=== PATIENT | female | born 1980 | race Two or more races ===

== ENCOUNTER 2016-12-29 03:59 | Emergency (ER) | payer OTHER ==
[~2016-12-29] VITALS: Ht 162.6 cm; Wt 99.8 kg
[2016-12-29] MEDS ORDERED: SODIUM CHLORIDE 0.9% 1,000 ML IV ONE (07:39)
[2016-12-29 07:58] LABS: Basophils # (auto) 0 uL; Basophils % (auto) 0.5 % (0.0-2.0); CONDITION Y; Eosinophils # (auto) 0.1 uL; Eosinophils % (auto) 0.9 % (0.0-7.0); Hematocrit 26.8 % (36.0-46.0); Hemoglobin 9.1 g/dL (12.2-16.2); Lymphocytes # (auto) 0.9 uL; Lymphocytes % (auto) 10.4 % (10.0-50.0); Mean Corpuscular Hemoglobin 31.6 pg (28.0-32.0); Mean Corpuscular Hgb Conc. 34.1 g/dL (32.0-36.0); Mean Corpuscular Volume 92.7 fL (80.0-100.0); Mean Platelet Volume 8.5 fL (6.9-10.8); Monocytes # (auto) 0.2 uL; Monocytes % (auto) 2.5 % (0.0-12.0); Neutrophils # (auto) 7.9 uL; Neutrophils % (auto) 85.7 % (37.0-80.0); Platelet Count (auto) 238 10^3/uL (140-450); Red Cell Distribution Width 13.8 % (11.8-14.3); White Blood Cell 9.2 10^3/uL (4.4-10.8)
[2016-12-29 08:47] LABS: Calcium 7.8 mg/dL (8.5-10.1); Magnesium 2.7 mg/dL (1.6-2.6); Potassium 3.7 mmol/L (3.5-5.1)
[2016-12-29 08:53] LABS: BUN/Creatinine Ratio 6.1; Bilirubin, Total 0.2 mg/dL (0.2-1.0); Total Protein 5.9 g/dL (6.4-8.2)
[2016-12-29 09:43] VITALS: BP 139/75
[2016-12-29 09:57] LABS: Urine Bilirubin Negative (Negative); Urine Blood TRACE /uL (Negative); Urine Color Yellow (Yellow); Urine Glucose 3+ mg/dL (Normal); Urine Ketone TRACE (Negative); Urine Mucus FEW (None Seen); Urine Nitrite Negative (Negative); Urine RBC 11 /hpf (0 - 4); Urine Squamous Epithelial Cell MOD /hpf (<5); Urine Urobilinogen Normal (Negative); Urine pH 7.5 (5.0-8.0)
== END 2016-12-29 11:21 | disposition home or self-care (01) ==
LOC: ER 04:07
DX: E11.649 Type 2 diabetes mellitus with hypoglycemia without coma (principal); G93.41 Metabolic encephalopathy; E11.22 Type 2 diabetes mellitus with diabetic chronic kidney disease; N18.6 End stage renal disease; I12.0 Hypertensive chronic kidney disease with stage 5 chronic kidney disease or end stage renal disease; Z99.2 Dependence on renal dialysis
CPT/HCPCS: 36415; 80053; 81001; 81025; 82962; 83036; 83735; 84443; 85025; 96360; 96361; 99285; J7030

== ENCOUNTER 2019-05-07 15:52 | Inpatient (IN) | payer OTHER ==
[~2019-05-07] VITALS: Ht 167.6 cm; Wt 103.2 kg
[2019-05-07 16:25] LABS: Basophils # (auto) 0.1 uL; Basophils % (auto) 0.9 % (0.0-2.0); Eosinophils # (auto) 0 uL; Hematocrit 33.7 % (36.0-46.0); Hemoglobin 11.4 g/dL (12.2-16.2); Lymphocytes # (auto) 1.3 uL; Lymphocytes % (auto) 7.9 % (10.0-50.0); Mean Corpuscular Hgb Conc. 33.7 g/dL (32.0-36.0); Mean Corpuscular Volume 95.1 fL (80.0-100.0); Monocytes # (auto) 1.1 uL; Monocytes % (auto) 6.5 % (0.0-12.0); Neutrophils % (auto) 84.7 % (37.0-80.0); Platelet Count (auto) 216 10^3/uL (140-450); Red Blood Cells 3.55 10^6/uL (4.0-5.20); Red Cell Distribution Width 13.3 % (11.8-14.3); White Blood Cell 16.5 10^3/uL (4.4-10.8)
[2019-05-07 16:42] LABS: INR 1.16 (0.9-1.15); Partial Thromboplastin Time 23.9 sec (23.64-32.05)
[2019-05-07 16:43] LABS: Albumin 2.7 g/dL (3.4-5.0); Calcium 8.8 mg/dL (8.5-10.1)
[2019-05-07 16:48] LABS: BUN/Creatinine Ratio 3.8; Bilirubin, Total 0.4 mg/dL (0.2-1.0); Total Protein 7.8 g/dL (6.4-8.2)
[2019-05-07] MEDS ORDERED: ONDANSETRON HCL 4 MG/2 ML VIAL IV ONE ×2 (18:00→20:00)
[2019-05-07] MEDS ORDERED: ALUM & MAG HYDROX-SIMETH LIQ(MAALOX) 30 ML ONE (21:39)
[2019-05-07] MEDS ORDERED: ALUM & MAG HYDROX-SIMETH LIQ(MAALOX) 30 ML PO ONE (21:45)
[2019-05-07] MEDS ORDERED: LORazepam 0.5 MG TAB PO PRN (22:30)
[2019-05-07] MEDS ORDERED: DEXTROSE (50%) 50ML SYRG IV PRN (22:30)
[2019-05-07] MEDS ORDERED: MORPHINE SULFATE 4 MG/ML SYR/VIAL IV PRN (22:30)
[2019-05-07] MEDS ORDERED: NITROGLYCERIN 0.4 MG SL TAB SL PRN (22:30)
[2019-05-08] MEDS: InsuLIN REG 1unit/0.01ml Soln (100units/ml) SC SCH ×6 (00:33→20:02)
[2019-05-08] MEDS: SODIUM CHLORIDE 0.9% 1,000 ML IV SCH ×2 (00:33→11:47)
[2019-05-08] MEDS: ACCU-CHEK COMFORT CURVE STRIP VI SCH ×6 (00:34→20:02)
[2019-05-08] MEDS: PROMETHAZINE HCL 25 MG/ML 1ML IV PRN ×3 (00:35→13:12)
[2019-05-08] MEDS: ACETAMINOPHEN 325 MG TAB PO PRN ×3 (00:52→13:16)
[2019-05-08] MEDS ORDERED: LISINOPRIL 5 MG TAB PO ONE (01:00)
[2019-05-08] MEDS ORDERED: METOPROLOL TARTRATE 25 MG TAB PO ONE (01:00)
[2019-05-08 05:00] VITALS: BP 135/61
[2019-05-08 06:02] LABS: Basophils # (auto) 0.1 uL; Basophils % (auto) 0.5 % (0.0-2.0); Eosinophils # (auto) 0 uL; Eosinophils % (auto) 0.1 % (0.0-7.0); Hematocrit 31.8 % (36.0-46.0); Hemoglobin 10.9 g/dL (12.2-16.2); Lymphocytes # (auto) 1.6 uL; Lymphocytes % (auto) 11.4 % (10.0-50.0); Mean Corpuscular Hemoglobin 32.8 pg (28.0-32.0); Mean Corpuscular Hgb Conc. 34.3 g/dL (32.0-36.0); Mean Corpuscular Volume 95.4 fL (80.0-100.0); Monocytes # (auto) 1.4 uL; Monocytes % (auto) 10.2 % (0.0-12.0); Neutrophils # (auto) 10.6 uL; Neutrophils % (auto) 77.8 % (37.0-80.0); Platelet Count (auto) 189 10^3/uL (140-450); Red Blood Cells 3.33 10^6/uL (4.0-5.20); Red Cell Distribution Width 13.1 % (11.8-14.3); White Blood Cell 13.7 10^3/uL (4.4-10.8)
[2019-05-08 06:20] LABS: Potassium 4.1 mmol/L (3.5-5.1)
[2019-05-08 06:23] LABS: BUN/Creatinine Ratio 3.9
[2019-05-08] MEDS: CLOPIDOGREL BISULFATE 75 MG TAB PO SCH (09:12)
[2019-05-08] MEDS: ASPirin 81 mg TAB PO SCH (09:12)
[2019-05-08] MEDS: LISINOPRIL 5 MG TAB PO SCH (09:12)
[2019-05-08] MEDS: METOPROLOL TARTRATE 25 MG TAB PO SCH ×2 (09:13→22:28)
[2019-05-08 09:27] VITALS: BP 122/65
[2019-05-08] MEDS ORDERED: PERITONEAL DIALYSIS 2.5% SOLN 2,000 ML IP SCH ×2 (12:00→14:00)
[2019-05-08 13:00] VITALS: BP 141/92
[2019-05-08] MEDS: metroNIDAZOLE 500MG/100ML 100 ML IV SCH ×2 (13:08→22:29)
[2019-05-08] MEDS: PIPERACILLIN-TAZOB 2.25GM 50 ML IV SCH ×2 (14:23→22:28)
[2019-05-08 17:00] VITALS: BP 158/91
[2019-05-08] MEDS: PERITONEAL DIALYSIS 2.5% SOLN 2,000 ML IP SCH (17:31)
[2019-05-08] MEDS ORDERED: MORPHINE SULF INJ 2 MG/ML SYRINGE 1ML IV PRN (18:00)
[2019-05-08] MEDS: MORPHINE SULF INJ 2 MG/ML SYRINGE 1ML IV PRN (19:55)
[2019-05-08 20:00] VITALS: BP 141/92
[2019-05-08 22:00] VITALS: BP 177/91
[2019-05-08] MEDS: ATORVASTATIN 20 MG TAB PO SCH (22:27)
[2019-05-08] MEDS: PERITONEAL DIALYSIS 4.25% SOLN 2,000 ML IP SCH (22:50)
[2019-05-09] MEDS: SODIUM CHLORIDE 0.9% 1,000 ML IV SCH ×3 (01:07→20:35)
[2019-05-09] MEDS: ACCU-CHEK COMFORT CURVE STRIP VI SCH ×6 (04:00→20:21)
[2019-05-09] MEDS: InsuLIN REG 1unit/0.01ml Soln (100units/ml) SC SCH ×6 (04:00→20:30)
[2019-05-09 05:00] VITALS: BP 167/100
[2019-05-09] MEDS: metroNIDAZOLE 500MG/100ML 100 ML IV SCH ×3 (05:48→21:58)
[2019-05-09] MEDS: PIPERACILLIN-TAZOB 2.25GM 50 ML IV SCH ×3 (05:49→22:59)
[2019-05-09] MEDS: MORPHINE SULF INJ 2 MG/ML SYRINGE 1ML IV PRN ×4 (05:55→23:00)
[2019-05-09] MEDS: PERITONEAL DIALYSIS 2.5% SOLN 2,000 ML IP SCH ×3 (06:14→16:34)
[2019-05-09 09:00] VITALS: BP 169/90
[2019-05-09] MEDS: amLODIPine BESYLATE 5 MG TAB PO SCH (09:38)
[2019-05-09] MEDS: CLOPIDOGREL BISULFATE 75 MG TAB PO SCH (09:38)
[2019-05-09] MEDS: LISINOPRIL 5 MG TAB PO SCH (09:39)
[2019-05-09] MEDS: ASPirin 81 mg TAB PO SCH (09:39)
[2019-05-09] MEDS: METOPROLOL TARTRATE 25 MG TAB PO SCH ×2 (09:39→21:59)
[2019-05-09 10:54] LABS: Albumin 2.4 g/dL (3.4-5.0); Calcium 8.2 mg/dL (8.5-10.1); Potassium 4.1 mmol/L (3.5-5.1)
[2019-05-09 10:57] LABS: BUN/Creatinine Ratio 3.9; Bilirubin, Total 0.5 mg/dL (0.2-1.0)
[2019-05-09] MEDS: SUCRALFATE 1 GM/10 ML ORAL SUSP PO SCH ×3 (12:34→21:58)
[2019-05-09] MEDS: ONDANSETRON HCL 4 MG/2 ML VIAL IV PRN ×2 (12:34→20:35)
[2019-05-09] MEDS: CALCIUM ACETATE 667 MG CAP PO SCH ×2 (12:35→17:53)
[2019-05-09 13:04] VITALS: BP 178/95
[2019-05-09] MEDS: PROMETHAZINE HCL 25 MG/ML 1ML IV PRN ×2 (15:34→23:07)
[2019-05-09 16:48] VITALS: BP 160/101
[2019-05-09 21:48] VITALS: BP 190/103
[2019-05-09] MEDS: ATORVASTATIN 20 MG TAB PO SCH (21:58)
[2019-05-09] MEDS: PERITONEAL DIALYSIS 4.25% SOLN 2,000 ML IP SCH (22:25)
[2019-05-10] VITALS (7 sets, daily range): BP systolic 121–172; BP diastolic 73–91
[2019-05-10] MEDS: ACCU-CHEK COMFORT CURVE STRIP VI SCH ×6 (00:04→19:52)
[2019-05-10] MEDS: InsuLIN REG 1unit/0.01ml Soln (100units/ml) SC SCH ×6 (00:08→19:57)
[2019-05-10] MEDS: SODIUM CHLORIDE 0.9% 1,000 ML IV SCH (03:47)
[2019-05-10] MEDS: metroNIDAZOLE 500MG/100ML 100 ML IV SCH ×2 (05:08→13:59)
[2019-05-10] MEDS: PIPERACILLIN-TAZOB 2.25GM 50 ML IV SCH (06:02)
[2019-05-10] MEDS: SUCRALFATE 1 GM/10 ML ORAL SUSP PO SCH ×3 (06:18→18:01)
[2019-05-10] MEDS: PERITONEAL DIALYSIS 2.5% SOLN 2,000 ML IP SCH ×3 (06:51→16:14)
[2019-05-10 07:23] LABS: Basophils # (auto) 0.1 uL; Eosinophils # (auto) 0.1 uL; Eosinophils % (auto) 1.1 % (0.0-7.0); Hematocrit 30.9 % (36.0-46.0); Hemoglobin 10.7 g/dL (12.2-16.2); Lymphocytes # (auto) 1.1 uL; Lymphocytes % (auto) 13.4 % (10.0-50.0); Mean Corpuscular Hemoglobin 32.8 pg (28.0-32.0); Mean Corpuscular Hgb Conc. 34.6 g/dL (32.0-36.0); Mean Corpuscular Volume 94.8 fL (80.0-100.0); Monocytes # (auto) 0.8 uL; Monocytes % (auto) 10.1 % (0.0-12.0); Neutrophils # (auto) 6.1 uL; Neutrophils % (auto) 74.4 % (37.0-80.0); Platelet Count (auto) 168 10^3/uL (140-450); Red Blood Cells 3.25 10^6/uL (4.0-5.20); Red Cell Distribution Width 12.8 % (11.8-14.3); White Blood Cell 8.2 10^3/uL (4.4-10.8)
[2019-05-10 07:46] LABS: Potassium 3.8 mmol/L (3.5-5.1)
[2019-05-10 07:48] LABS: BUN/Creatinine Ratio 3.9
[2019-05-10 07:50] LABS: Bilirubin, Total 0.5 mg/dL (0.2-1.0); Total Protein 6.1 g/dL (6.4-8.2)
[2019-05-10] MEDS: CALCIUM ACETATE 667 MG CAP PO SCH ×3 (08:00→18:01)
[2019-05-10] MEDS ORDERED: SODIUM CHLORIDE 0.9% 1,000 ML IV SCH (09:15)
[2019-05-10] MEDS ORDERED: FUROSEMIDE 100 MG/10ML VIAL IV ONE (09:30)
[2019-05-10] MEDS ORDERED: acetaZOLAMIDE 250 MG TAB PO SCH (10:00)
[2019-05-10] MEDS: LISINOPRIL 10 MG TAB PO SCH ×2 (10:40→10:51)
[2019-05-10] MEDS: amLODIPine BESYLATE 5 MG TAB PO SCH (10:40)
[2019-05-10] MEDS: METOPROLOL TARTRATE 25 MG TAB PO SCH (10:41)
[2019-05-10] MEDS ORDERED: HYDROcodone-ACET 5/325MG TAB PO PRN (12:30)
[2019-05-10] MEDS: ONDANSETRON HCL 4 MG/2 ML VIAL IV PRN ×2 (12:58→18:06)
[2019-05-10] MEDS ORDERED: PIPERACILLIN-TAZOB 2.25GM 50 ML IV SCH (15:00)
[2019-05-10] MEDS ORDERED: TUBERCULIN PPD 5 UNIT/0.1 ML ID ONE (21:00)
[2019-05-12] MEDS ORDERED: ASPirin 81 mg TAB PO SCH (10:00)
[2019-05-12] MEDS ORDERED: CLOPIDOGREL BISULFATE 75 MG TAB PO SCH (10:00)
== END 2019-05-10 22:10 | disposition short-term general hospital (02) | DRG 871 ==
LOC: EDBD 15:52 → EDUNIT# 15:52 → ER 15:59 → TELE 16:00 → TELE-CENTR 23:31
PROVIDERS: ADMIT Hospitalist; ATTEND Family Medicine
DX: A41.9 Sepsis, unspecified organism (principal); I21.4 Non-ST elevation (NSTEMI) myocardial infarction; N18.6 End stage renal disease; E87.1 Hypo-osmolality and hyponatremia; I13.2 Hypertensive heart and chronic kidney disease with heart failure and with stage 5 chronic kidney disease, or end stage renal disease; J98.11 Atelectasis; E87.3 Alkalosis; E10.22 Type 1 diabetes mellitus with diabetic chronic kidney disease; D63.1 Anemia in chronic kidney disease; E66.9 Obesity, unspecified; I16.0 Hypertensive urgency; I50.9 Heart failure, unspecified; K52.9 Noninfective gastroenteritis and colitis, unspecified; E83.39 Other disorders of phosphorus metabolism; K20.9 Esophagitis, unspecified; E10.21 Type 1 diabetes mellitus with diabetic nephropathy; E10.40 Type 1 diabetes mellitus with diabetic neuropathy, unspecified; E78.00 Pure hypercholesterolemia, unspecified; Z79.899 Other long term (current) drug therapy; Z82.49 Family history of ischemic heart disease and other diseases of the circulatory system; Z83.3 Family history of diabetes mellitus; Z99.2 Dependence on renal dialysis
CPT/HCPCS: 36415; 71045; 71250; 74176; 80048; 80053; 80061; 82306; 82962; 83036; 83605; 83690; 83880; 83970; 84100; 84484; 84702; 85025; 85610; 85730; 87040; 89051; 93306; G0378; J1815; J2405; J2543; J3490

== ENCOUNTER 2021-11-27 13:09 | Inpatient (IN) | payer OTHER ==
[~2021-11-27] VITALS: Ht 160 cm; Wt 99.6 kg
[2021-11-27] MEDS: PERITONEAL DIALYSIS 2.5% SOLN 2,000 ML IP SCH (04:00)
[2021-11-27 14:05] LABS: Basophils # (auto) 0.1 10 ^3/uL (0-0.2); Basophils % (auto) 0.7 % (0.0-2.0); Eosinophils # (auto) 0 10 ^3/uL (0-0.8); Eosinophils % (auto) 0.2 % (0.0-7.0); Hematocrit 31.5 % (36.0-46.0); Hemoglobin 10.8 g/dL (12.2-16.2); Lymphocytes # (auto) 0.6 10 ^3/uL (0.4-5.4); Lymphocytes % (auto) 6.9 % (10.0-50.0); Mean Corpuscular Hemoglobin 30.8 pg (28.0-32.0); Mean Corpuscular Hgb Conc. 34.2 g/dL (32.0-36.0); Mean Corpuscular Volume 90.1 fL (80.0-100.0); Monocytes # (auto) 0.6 10 ^3/uL (0-1.3); Monocytes % (auto) 6.9 % (0.0-12.0); Neutrophils # (auto) 6.9 10 ^3/uL (1.6-8.6); Neutrophils % (auto) 85.3 % (37.0-80.0); Red Cell Distribution Width 13.8 % (11.8-14.3); White Blood Cell 8.1 10^3/uL (4.4-10.8)
[2021-11-27 14:35] LABS: INR 1.04 (0.9-1.15); Partial Thromboplastin Time 24.5 sec (24.6-33.4)
[2021-11-27 14:51] LABS: Albumin 2.9 g/dL (3.4-5.0); Calcium 9.2 mg/dL (8.5-10.1)
[2021-11-27 14:53] LABS: BUN/Creatinine Ratio 2.6
[2021-11-27 14:56] LABS: Bilirubin, Total 0.5 mg/dL (0.2-1.0); Total Protein 7.8 g/dL (6.4-8.2)
[2021-11-27 15:19] LABS: Potassium 2.6 mmol/L (3.5-5.1)
[2021-11-27] MEDS ORDERED: POTASSIUM CHL 20MEQ/100ML 100 ML IV ONE (15:30)
[2021-11-27] MEDS ORDERED: ENOXAPARIN SOD 80 MG/0.8ML SYRINGE SC ONE (15:45)
[2021-11-27] MEDS ORDERED: POTASSIUM CHLORIDE 20 MEQ, LIDOCAINE 1% (LOCAL ANESTH.) 2 ML in SODIUM CHL 0.9% 100 ML IV ONE (17:15)
[2021-11-27] MEDS ORDERED: hydrALAZINE HCL 20 MG/ML VL IV ONE (17:15)
[2021-11-27] MEDS ORDERED: NITROGLYCERIN 0.4 MG SL TAB SL PRN ×2 (17:15→17:30)
[2021-11-27] MEDS ORDERED: MORPHINE SULFATE INJ 2 MG/ml SYRG IV PRN ×2 (17:15→17:30)
[2021-11-27] MEDS ORDERED: ASPirin 81 mg TAB PO ONE (17:30)
[2021-11-27] MEDS ORDERED: hydrALAZINE HCL 20 MG/ML VL IV PRN (17:45)
[2021-11-27] MEDS ORDERED: DEXTROSE (50%) 50ML SYRG IV PRN ×2 (17:45→21:15)
[2021-11-27] MEDS: hydrALAZINE HCL 20 MG/ML VL IV PRN (17:47)
[2021-11-27 19:15] LABS: Magnesium 1.8 mg/dL (1.6-2.6)
[2021-11-27] MEDS: POTASSIUM CHL 20MEQ/100ML 100 ML IV SCH ×2 (19:35→21:22)
[2021-11-27] MEDS ORDERED: PROMETHAZINE HCL 25 MG/ML 1ML IV ONE (19:45)
[2021-11-27 19:57] LABS: Cholesterol 133 mg/dL (< 200); Triglycerides 72 mg/dL (< 150)
[2021-11-27 20:30] LABS: HDL Cholesterol 39 mg/dL (40-59); LDL Cholesterol 93 mg/dL (< 100)
[2021-11-27] MEDS ORDERED: DEXTROSE (50%) 50ML SYRG IV ONE (21:00)
[2021-11-27] MEDS ORDERED: ACCU-CHEK COMFORT CURVE STRIP VI SCH (22:00)
[2021-11-27] MEDS ORDERED: InsuLIN REG 1unit/0.01ml Soln (100units/ml) SC SCH (22:00)
[2021-11-27] MEDS: InsuLIN REG 1unit/0.01ml Soln (100units/ml) SC SCH (22:04)
[2021-11-27] MEDS: ACCU-CHEK COMFORT CURVE STRIP VI SCH (22:05)
[2021-11-27 22:30] VITALS: BP 188/85
[2021-11-27] MEDS: ATORVASTATIN 20 MG TAB PO SCH (22:47)
[2021-11-27] MEDS: METOPROLOL TARTRATE 50 MG TAB PO SCH (22:48)
[2021-11-28] VITALS (7 sets, daily range): BP systolic 120–187; BP diastolic 60–95
[2021-11-28] MEDS: PERITONEAL DIALYSIS 2.5% SOLN 2,000 ML IP SCH ×7 (02:00→22:00)
[2021-11-28] MEDS: ACCU-CHEK COMFORT CURVE STRIP VI SCH ×4 (02:20→23:57)
[2021-11-28] MEDS: InsuLIN REG 1unit/0.01ml Soln (100units/ml) SC SCH ×3 (02:21→09:48)
[2021-11-28 05:32] LABS: Basophils # (auto) 0 10 ^3/uL (0-0.2); Basophils % (auto) 0.5 % (0.0-2.0); Eosinophils # (auto) 0 10 ^3/uL (0-0.8); Eosinophils % (auto) 0.1 % (0.0-7.0); Hematocrit 27.4 % (36.0-46.0); Hemoglobin 9.5 g/dL (12.2-16.2); Lymphocytes # (auto) 1.2 10 ^3/uL (0.4-5.4); Lymphocytes % (auto) 17.1 % (10.0-50.0); Mean Corpuscular Hgb Conc. 34.5 g/dL (32.0-36.0); Mean Corpuscular Volume 92.8 fL (80.0-100.0); Monocytes # (auto) 0.8 10 ^3/uL (0-1.3); Monocytes % (auto) 12.2 % (0.0-12.0); Neutrophils # (auto) 4.7 10 ^3/uL (1.6-8.6); Neutrophils % (auto) 70.1 % (37.0-80.0); Red Blood Cells 2.96 10^6/uL (4.0-5.20); Red Cell Distribution Width 14.1 % (11.8-14.3); White Blood Cell 6.7 10^3/uL (4.4-10.8)
[2021-11-28 05:53] LABS: Albumin 2.4 g/dL (3.4-5.0); BUN/Creatinine Ratio 3.1; Calcium 8.1 mg/dL (8.5-10.1); Potassium 3.2 mmol/L (3.5-5.1)
[2021-11-28 05:56] LABS: Bilirubin, Total 0.3 mg/dL (0.2-1.0); Total Protein 6.7 g/dL (6.4-8.2)
[2021-11-28] MEDS: LOSARTAN POTASSIUM 25 MG TAB PO SCH (09:29)
[2021-11-28] MEDS: ASPirin 81 mg TAB PO SCH (09:29)
[2021-11-28] MEDS: METOPROLOL TARTRATE 50 MG TAB PO SCH ×2 (09:30→20:29)
[2021-11-28] MEDS ORDERED: POTASSIUM CHL 20 Meq TABLET PO SCH (10:00)
[2021-11-28] MEDS ORDERED: ENOXAPARIN SOD 30 MG/0.3 ML SYRINGE SC SCH (10:00)
[2021-11-28] MEDS: ONDANSETRON HCL 4 MG/2 ML VIAL IV PRN ×2 (10:35→14:53)
[2021-11-28] MEDS ORDERED: ERGOCALCIFEROL 50,000 UNIT(1.25MG) CAP PO SCH (11:15)
[2021-11-28] MEDS ORDERED: AZITHROMYCIN 250 MG TAB PO ONE (11:45)
[2021-11-28] MEDS ORDERED: DEXTROSE (50%) 50ML SYRG IV PRN ×3 (11:45→20:15)
[2021-11-28] MEDS: POTASSIUM CHL 20 Meq TABLET PO SCH ×2 (13:50→22:09)
[2021-11-28] MEDS: POTASSIUM CHL 20MEQ/100ML 100 ML IV SCH ×2 (13:50→17:18)
[2021-11-28] MEDS ORDERED: ACCU-CHEK COMFORT CURVE STRIP VI SCH (17:00)
[2021-11-28] MEDS ORDERED: InsuLIN REG 1unit/0.01ml Soln (100units/ml) SC SCH (17:00)
[2021-11-28] MEDS ORDERED: POTASSIUM CHL 20MEQ/100ML 100 ML IV ONE (17:18)
[2021-11-28] MEDS: hydrALAZINE HCL 20 MG/ML VL IV PRN (17:53)
[2021-11-28] MEDS ORDERED: INSULIN LANTUS (GLARGINE) 1 /0.01ml (100units/ml) SC ONE (20:00)
[2021-11-28] MEDS: METOCLOPRAMIDE HCL 5MG/ml INJ 2ml VIAL IV PRN (20:08)
[2021-11-28 20:11] LABS: Basophils # (auto) 0 10 ^3/uL (0-0.2); Basophils % (auto) 0.3 % (0.0-2.0); Eosinophils # (auto) 0 10 ^3/uL (0-0.8); Eosinophils % (auto) 0.1 % (0.0-7.0); Hematocrit 29.9 % (36.0-46.0); Hemoglobin 9.7 g/dL (12.2-16.2); Lymphocytes # (auto) 0.8 10 ^3/uL (0.4-5.4); Lymphocytes % (auto) 7.8 % (10.0-50.0); Mean Corpuscular Hemoglobin 30.5 pg (28.0-32.0); Mean Corpuscular Hgb Conc. 32.4 g/dL (32.0-36.0); Mean Corpuscular Volume 94.2 fL (80.0-100.0); Monocytes # (auto) 0.5 10 ^3/uL (0-1.3); Monocytes % (auto) 4.6 % (0.0-12.0); Neutrophils # (auto) 8.6 10 ^3/uL (1.6-8.6); Neutrophils % (auto) 87.2 % (37.0-80.0); Red Blood Cells 3.18 10^6/uL (4.0-5.20); Red Cell Distribution Width 14.1 % (11.8-14.3); White Blood Cell 9.8 10^3/uL (4.4-10.8)
[2021-11-28] MEDS ORDERED: EPOETIN ALFA-EPBX 10,000 UNIT/1ML VIAL SC ONE (21:00)
[2021-11-28] MEDS: ATORVASTATIN 20 MG TAB PO SCH (22:09)
[2021-11-28] MEDS: INSULIN LANTUS (GLARGINE) 1 /0.01ml (100units/ml) SC SCH (22:10)
[2021-11-29] VITALS: BP 157/67
[2021-11-29] MEDS ORDERED: ACCU-CHEK COMFORT CURVE STRIP VI SCH
[2021-11-29] MEDS: PERITONEAL DIALYSIS 2.5% SOLN 2,000 ML IP SCH ×5 (00:24→18:00)
[2021-11-29] MEDS: METOCLOPRAMIDE HCL 5MG/ml INJ 2ml VIAL IV PRN (02:31)
[2021-11-29 05:00] VITALS: BP 145/77
[2021-11-29] MEDS: ACCU-CHEK COMFORT CURVE STRIP VI SCH ×4 (06:01→23:49)
[2021-11-29] MEDS: InsuLIN REG 1unit/0.01ml Soln (100units/ml) SC SCH ×5 (06:03→23:50)
[2021-11-29 06:21] LABS: Basophils # (auto) 0.1 10 ^3/uL (0-0.2); Basophils % (auto) 0.8 % (0.0-2.0); Eosinophils # (auto) 0 10 ^3/uL (0-0.8); Eosinophils % (auto) 0.4 % (0.0-7.0); Hematocrit 26.7 % (36.0-46.0); Hemoglobin 9.3 g/dL (12.2-16.2); Lymphocytes # (auto) 1.2 10 ^3/uL (0.4-5.4); Mean Corpuscular Hgb Conc. 34.6 g/dL (32.0-36.0); Mean Corpuscular Volume 92.4 fL (80.0-100.0); Monocytes # (auto) 0.7 10 ^3/uL (0-1.3); Neutrophils # (auto) 5.3 10 ^3/uL (1.6-8.6); Neutrophils % (auto) 72.8 % (37.0-80.0); Red Blood Cells 2.89 10^6/uL (4.0-5.20); White Blood Cell 7.3 10^3/uL (4.4-10.8)
[2021-11-29 06:38] LABS: Calcium 8.6 mg/dL (8.5-10.1); Potassium 3.3 mmol/L (3.5-5.1)
[2021-11-29 06:48] LABS: % Iron Saturation 19.1 % (15-50)
[2021-11-29 08:40] VITALS: BP 159/84
[2021-11-29] MEDS ORDERED: AZITHROMYCIN 250 MG TAB PO SCH (10:00)
[2021-11-29 12:35] VITALS: BP 166/89
[2021-11-29] MEDS ORDERED: LOPERAMIDE HCL 2 MG CAP/TAB PO ONE (12:45)
[2021-11-29] MEDS: ASPirin 81 mg TAB PO SCH (13:25)
[2021-11-29] MEDS: LOSARTAN POTASSIUM 25 MG TAB PO SCH (13:26)
[2021-11-29] MEDS: POTASSIUM CHL 20 Meq TABLET PO SCH ×2 (13:26→21:55)
[2021-11-29] MEDS: METOPROLOL TARTRATE 50 MG TAB PO SCH ×2 (13:29→21:56)
[2021-11-29] MEDS ORDERED: metroNIDAZOLE 500MG/100ML 100 ML IV ONE (13:45)
[2021-11-29] MEDS: POTASSIUM CHL 20MEQ/100ML 100 ML IV SCH ×3 (16:01→23:31)
[2021-11-29 16:30] VITALS: BP 165/91
[2021-11-29] MEDS ORDERED: PERITONEAL DIALYSIS 2.5% XX SCH (18:30)
[2021-11-29] MEDS: PERITONEAL DIALYSIS 2.5% IP SCH ×2 (18:30→22:30)
[2021-11-29] MEDS: ONDANSETRON HCL 4 MG/2 ML VIAL IV PRN (21:09)
[2021-11-29] MEDS: ATORVASTATIN 20 MG TAB PO SCH (21:55)
[2021-11-29 22:00] VITALS: BP 160/81
[2021-11-29] MEDS: metroNIDAZOLE 500MG/100ML 100 ML IV SCH (23:00)
[2021-11-29] MEDS: INSULIN LANTUS (GLARGINE) 1 /0.01ml (100units/ml) SC SCH (23:22)
[2021-11-29] MEDS ORDERED: POTASSIUM CHL 20MEQ/100ML 100 ML IV SCH (23:30)
[2021-11-30] MEDS: hydrALAZINE HCL 20 MG/ML VL IV PRN (00:23)
[2021-11-30] MEDS: ONDANSETRON HCL 4 MG/2 ML VIAL IV PRN (01:58)
[2021-11-30] MEDS: PERITONEAL DIALYSIS 2.5% IP SCH ×2 (02:30→06:30)
[2021-11-30 05:00] VITALS: BP 148/73
[2021-11-30] MEDS: ACCU-CHEK COMFORT CURVE STRIP VI SCH ×2 (05:53→11:50)
[2021-11-30] MEDS: InsuLIN REG 1unit/0.01ml Soln (100units/ml) SC SCH ×2 (05:54→11:50)
[2021-11-30] MEDS: metroNIDAZOLE 500MG/100ML 100 ML IV SCH (06:00)
[2021-11-30 07:57] LABS: Basophils # (auto) 0 10 ^3/uL (0-0.2); Basophils % (auto) 0.5 % (0.0-2.0); Eosinophils # (auto) 0.1 10 ^3/uL (0-0.8); Eosinophils % (auto) 0.9 % (0.0-7.0); Hematocrit 28.8 % (36.0-46.0); Hemoglobin 9.7 g/dL (12.2-16.2); Lymphocytes # (auto) 1.1 10 ^3/uL (0.4-5.4); Mean Corpuscular Hemoglobin 31.1 pg (28.0-32.0); Mean Corpuscular Hgb Conc. 33.8 g/dL (32.0-36.0); Mean Corpuscular Volume 92.2 fL (80.0-100.0); Monocytes # (auto) 0.6 10 ^3/uL (0-1.3); Monocytes % (auto) 8.4 % (0.0-12.0); Neutrophils # (auto) 5.3 10 ^3/uL (1.6-8.6); Neutrophils % (auto) 75.2 % (37.0-80.0); Red Blood Cells 3.13 10^6/uL (4.0-5.20); White Blood Cell 7.1 10^3/uL (4.4-10.8)
[2021-11-30 08:04] LABS: Potassium 3.8 mmol/L (3.5-5.1)
[2021-11-30 08:10] LABS: BUN/Creatinine Ratio 2.6; Calcium 8.1 mg/dL (8.5-10.1)
[2021-11-30 09:00] VITALS: BP 171/86
[2021-11-30] MEDS: METOPROLOL TARTRATE 50 MG TAB PO SCH (11:48)
[2021-11-30] MEDS: POTASSIUM CHL 20 Meq TABLET PO SCH (11:49)
[2021-11-30] MEDS: ASPirin 81 mg TAB PO SCH (11:49)
[2021-11-30] MEDS: LOSARTAN POTASSIUM 25 MG TAB PO SCH (11:50)
[2021-11-30] MEDS ORDERED: PANTOPRAZOLE 40 MG TAB PO ONE (12:45)
[2021-11-30 12:50] LABS: Hepatitis C Antibody Negative (Negative)
[2021-11-30 13:25] VITALS: BP 158/86
[2021-11-30 13:52] VITALS: BP 166/76
== END 2021-11-30 14:00 | disposition home or self-care (01) | DRG 177 ==
LOC: ER 13:09 → EDBD 13:09 → TELE 17:30 → TELE-WESTW 22:24
PROVIDERS: ADMIT Registered Nurse; ATTEND Internal Medicine
DX: U07.1 COVID-19 (principal); I21.A1 Myocardial infarction type 2; N18.6 End stage renal disease; I12.0 Hypertensive chronic kidney disease with stage 5 chronic kidney disease or end stage renal disease; E87.6 Hypokalemia; E88.09 Other disorders of plasma-protein metabolism, not elsewhere classified; E11.65 Type 2 diabetes mellitus with hyperglycemia; I16.0 Hypertensive urgency; E11.22 Type 2 diabetes mellitus with diabetic chronic kidney disease; E55.9 Vitamin D deficiency, unspecified; E78.5 Hyperlipidemia, unspecified; D63.1 Anemia in chronic kidney disease; E66.9 Obesity, unspecified; Z79.4 Long term (current) use of insulin; Z68.38 Body mass index [BMI] 38.0-38.9, adult; Z99.2 Dependence on renal dialysis; Z82.49 Family history of ischemic heart disease and other diseases of the circulatory system; Z83.3 Family history of diabetes mellitus; Z91.19 Patient's noncompliance with other medical treatment and regimen
CPT/HCPCS: 36415; 71045; 80048; 80053; 80061; 82306; 82728; 82962; 83036; 83540; 83550; 83735; 83880; 83970; 84100; 84132; 84443; 84484; 85025; 85610; 85730; 86803; 87081; 87340; 87493; 93005; 93306; 96361; 96374; 96375; G0378; J1815; J2405; J3480; J3490

== ENCOUNTER 2022-06-13 11:24 | Inpatient (IN) | payer OTHER ==
[~2022-06-13] VITALS: Ht 170.2 cm; Wt 90.0 kg
[2022-06-13] MEDS ORDERED: PROCHLORPERAZINE EDISYLATE 5 MG/ML 2ML VIAL IV ONE (12:00)
[2022-06-13 13:40] LABS: Basophils # (auto) 0.1 10 ^3/uL (0-0.2); Basophils % (auto) 0.4 % (0.0-2.0); Eosinophils # (auto) 0 10 ^3/uL (0-0.8); Eosinophils % (auto) 0.1 % (0.0-7.0); Hematocrit 29.7 % (36.0-46.0); Hemoglobin 9.9 g/dL (12.2-16.2); Mean Corpuscular Hgb Conc. 33.4 g/dL (32.0-36.0); Mean Corpuscular Volume 92.7 fL (80.0-100.0); Monocytes # (auto) 0.7 10 ^3/uL (0-1.3); Monocytes % (auto) 5.4 % (0.0-12.0); Neutrophils # (auto) 10.5 10 ^3/uL (1.6-8.6); Neutrophils % (auto) 86.1 % (37.0-80.0); Nucleated Red Blood Cells % 0.2 %; Red Blood Cells 3.21 10^6/uL (4.0-5.20); Red Cell Distribution Width 14.3 % (11.8-14.3); White Blood Cell 12.1 10^3/uL (4.4-10.8)
[2022-06-13 13:58] LABS: Albumin 3.3 g/dL (3.4-5.0); Calcium 8.8 mg/dL (8.5-10.1); Magnesium 1.9 mg/dL (1.6-2.6); Potassium 3.7 mmol/L (3.5-5.1)
[2022-06-13 14:02] LABS: BUN/Creatinine Ratio 4.5; Bilirubin, Total 0.6 mg/dL (0.2-1.0); Total Protein 7.5 g/dL (6.4-8.2)
[2022-06-13 16:23] LABS: Basophils # (auto) 0 10 ^3/uL (0-0.2); Basophils % (auto) 0.4 % (0.0-2.0); Eosinophils # (auto) 0 10 ^3/uL (0-0.8); Eosinophils % (auto) 0.1 % (0.0-7.0); Hemoglobin 10.1 g/dL (12.2-16.2); Lymphocytes # (auto) 0.9 10 ^3/uL (0.4-5.4); Lymphocytes % (auto) 6.3 % (10.0-50.0); Mean Corpuscular Hemoglobin 31.4 pg (28.0-32.0); Mean Corpuscular Hgb Conc. 33.8 g/dL (32.0-36.0); Mean Corpuscular Volume 92.8 fL (80.0-100.0); Monocytes # (auto) 0.6 10 ^3/uL (0-1.3); Monocytes % (auto) 4.7 % (0.0-12.0); Neutrophils % (auto) 88.5 % (37.0-80.0); Nucleated Red Blood Cells % 0.1 %; Red Blood Cells 3.23 10^6/uL (4.0-5.20); Red Cell Distribution Width 14.6 % (11.8-14.3); White Blood Cell 13.5 10^3/uL (4.4-10.8)
[2022-06-13 18:12] VITALS: BP 181/83
[2022-06-13] MEDS ORDERED: DEXTROSE (50%) 50ML SYRG IV PRN (19:15)
[2022-06-13] MEDS ORDERED: FUROSEMIDE 20 MG/2 ML VIAL IV ONE (19:15)
[2022-06-13] MEDS ORDERED: NIFE1TAB30 (19:21)
[2022-06-13] MEDS ORDERED: INSLANTI SC (19:21)
[2022-06-13] MEDS ORDERED: CIPR500T4 PO (19:21)
[2022-06-13] MEDS ORDERED: LACT10SO3 PO (19:21)
[2022-06-13] MEDS ORDERED: METO-159 PO (19:21)
[2022-06-13] MEDS ORDERED: CALC0.25 PO (19:21)
[2022-06-13] MEDS ORDERED: ITRA100C2 PO (19:21)
[2022-06-13] MEDS ORDERED: CINA30TA14 PO (19:21)
[2022-06-13] MEDS ORDERED: PIPERACILLIN-TAZOB 2.25GM 50 ML IV ONE (19:30)
[2022-06-13] MEDS ORDERED: metroNIDAZOLE 500MG/100ML 100 ML IV ONE (19:30)
[2022-06-13 19:50] LABS: Cholesterol 123 mg/dL (< 200); HDL Cholesterol 66 mg/dL (40-59); LDL Cholesterol 50 mg/dL (< 100); Triglycerides 96 mg/dL (< 150)
[2022-06-13] MEDS ORDERED: PIPERACILLIN-TAZOB 2.25GM 50 ML IV SCH (22:00)
[2022-06-13] MEDS ORDERED: ACCU-CHEK COMFORT CURVE STRIP VI SCH (22:00)
[2022-06-13] MEDS ORDERED: InsuLIN REG 1unit/0.01ml Soln (100units/ml) SC SCH (22:00)
[2022-06-13] MEDS ORDERED: metroNIDAZOLE 500MG/100ML 100 ML IV SCH (22:00)
== END 2022-06-14 07:49 | disposition left against medical advice (07) | DRG 391 ==
LOC: ER 11:24 → EDBD 11:24 → OVERFLOW 19:09
PROVIDERS: ADMIT Nurse Practitioner Family; ATTEND Internal Medicine Geriatric Medicine
DX: R11.2 Nausea with vomiting, unspecified (principal); N18.6 End stage renal disease; I12.0 Hypertensive chronic kidney disease with stage 5 chronic kidney disease or end stage renal disease; E87.1 Hypo-osmolality and hyponatremia; E46 Unspecified protein-calorie malnutrition; E11.22 Type 2 diabetes mellitus with diabetic chronic kidney disease; D72.829 Elevated white blood cell count, unspecified; Z53.29 Procedure and treatment not carried out because of patient's decision for other reasons; D63.8 Anemia in other chronic diseases classified elsewhere; Z20.822 Contact with and (suspected) exposure to COVID-19; E66.01 Morbid (severe) obesity due to excess calories; K76.0 Fatty (change of) liver, not elsewhere classified; Z99.2 Dependence on renal dialysis; Z68.31 Body mass index [BMI] 31.0-31.9, adult; Z83.3 Family history of diabetes mellitus; Z98.891 History of uterine scar from previous surgery
CPT/HCPCS: 36415; 74176; 76700; 80053; 80061; 83036; 83605; 83690; 83735; 85025; 87426; 96374; G0378